=== PATIENT | female | born 1980 | race Caucasian/White ===

== ENCOUNTER 2024-02-14 17:22 | Emergency (ER) | payer OTHER ==
[2024-02-14 17:35] VITALS: BP 133/72; PULSE 100; RESP 18; TEMP 98; BMI 35.9
[2024-02-14] MEDS ORDERED: KETOROLAC TROMETHAMINE 30 MG/1 ML VIAL ONE (18:45)
[2024-02-14] MEDS ORDERED: METHOCARBAMOL 500 MG TABLET ONE (18:45)
[2024-02-14] MEDS ORDERED: ACETAMINOPHEN 325 MG TABLET (FP) ONE (18:45)
[2024-02-14] MEDS: ACETAMINOPHEN 325 MG TABLET (FP) PO ONE (18:48)
[2024-02-14] MEDS: METHOCARBAMOL 500 MG TABLET PO ONE (18:48)
[2024-02-14] MEDS: KETOROLAC TROMETHAMINE 30 MG/1 ML VIAL IM ONE (18:48)
== END 2024-02-14 20:56 | disposition home or self-care (01) ==
LOC: JERFT 17:22
PROC: 3E0233Z Introduction of Anti-inflammatory into Muscle, Percutaneous Approach (ICD-10-PCS; principal; 2024-02-14)
DX: S09.90XA Unspecified injury of head, initial encounter (principal); M54.2 Cervicalgia; M79.602 Pain in left arm; M54.9 Dorsalgia, unspecified; V43.62XA Car passenger injured in collision with other type car in traffic accident, initial encounter; Y92.410 Unspecified street and highway as the place of occurrence of the external cause
CPT/HCPCS: 70450-TC; 72125-TC; 73030-TC-LT-FY; 99284-25